=== PATIENT | female | born 1990 | race Hispanic/Latino ===

== ENCOUNTER 2018-04-18 15:56 | Inpatient (IN) | payer OTHER ==
[2018-04-18] MEDS ORDERED: Ibuprofen 800 MG TAB PO PRN (21:10)
[2018-04-18] MEDS ORDERED: Zolpidem Tartrate 5 MG TAB PO PRN (21:10)
[2018-04-18] MEDS ORDERED: Acetaminophen 500 MG TAB PO PRN (21:10)
[2018-04-18] MEDS ORDERED: Promethazine HCl 25 MG/ML VIAL IM PRN (21:10)
[2018-04-18] MEDS ORDERED: Carboprost 250 MCG/ML AMP IM PRN (21:10)
[2018-04-18] MEDS ORDERED: Methylergonovine 0.2 MG/ML VIAL IM PRN (21:10)
[2018-04-18] MEDS ORDERED: Ondansetron HCl/PF 4 MG/2 ML Vial IVP PRN (21:10)
[2018-04-18] MEDS ORDERED: Lidocaine 1% (PF) 30 ML VIAL SC PRN (21:10)
[2018-04-18] MEDS ORDERED: Misoprostol 200 MCG TAB PR PRN (21:10)
[2018-04-18] MEDS ORDERED: HYDROcodone/Acetaminophen 5/325 mg Tablet PO PRN (21:10)
[2018-04-18] MEDS ORDERED: Diphenoxylate HCl/Atropine Tablet PO PRN (21:10)
[2018-04-18] MEDS ORDERED: Butorphanol Tartrate 1 MG/ML VIAL SLOW IVP PRN (21:10)
[2018-04-18] MEDS ORDERED: NS / Oxytocin 40 units/1000ml 1,000 ML IV PRN (21:10)
[2018-04-18 21:41] VITALS: BMI 30.9
[2018-04-18] MEDS: Lactated Ringer's 1,000 ML IV SCH (21:50)
[2018-04-18 22:09] LABS: Hemoglobin 11.7 g/dL (12.0-16.0); Mean Corpuscular HGB CONC 33.4 g/dL (32.0-36.0); Mean Corpuscular Hemoglobin 31.6 pg (27.0-31.0); Mean Corpuscular Volume 94.5 fl (81.0-99.0); Mean Platelet Volume 11.2 fL (7.4-10.4); Platelet Count 165 thou/uL (130-400); RBC Distribution Width 12.6 % (11.5-14.5); White Blood Cell (WBC) Count 7.7 thou/uL (4.8-10.8)
[2018-04-18] MEDS: Misoprostol 100 MCG TAB VAG SCH (22:16)
[2018-04-18 22:32] LABS: ALT (SGPT) 167 U/L (8-55); AST (SGOT) 140 U/L (5-34); Albumin 3.3 g/dL (3.5-5.0); Alkaline Phosphatase 292 U/L (40-150); Anion Gap 12 mmol/L (10-20); BUN (Urea Nitrogen) 5 mg/dL (7.0-18.7); Bilirubin, Total 0.6 mg/dL (0.2-1.2); Calc. Creatinine Clearance 169 mL/min (70-130); Calcium 9.1 mg/dL (7.8-10.44); Carbon Dioxide 21 mmol/L (22-29); Chloride 108 mmol/L (98-107); Estimated GFR-MDRD Greater than 90; Glucose 83 mg/dL (70-105); Potassium 3.8 mmol/L (3.5-5.1); Protein, Total 6.3 g/dL (6.0-8.3); Sodium 137 mmol/L (136-145)
[2018-04-18 22:50] LABS: Syphilis Antibody Nonreactive (Nonreactive); Syphilis Antibody Index 0.06 S/CO (<1.00 Non-Reactive)
[2018-04-19 00:54] LABS: HBSAg Index 0.23 S/CO (0-0.99); Hep B Surf Ag Non-Reactive S/CO (NonReactive)
[2018-04-19] MEDS: Lactated Ringer's 1,000 ML IV SCH ×3 (03:05→12:35)
[2018-04-19] MEDS: Misoprostol 100 MCG TAB VAG SCH ×3 (03:30→12:35)
[2018-04-19] MEDS: NS w/ Oxytocin 10 units 500 ML IV SCH (06:06)
--- NOTE | 2018-04-19 07:59 | PDOC.LDHP ---
Labor and Delivery H&P Chief complaint: scheduled induction HPI: 28yo at 37w0d by LMP for IOL due to cholestasis of . Painful ctx 5/10 s/p cytotec x 1 overnight Current gestational age (weeks): 37 Due date: 05/07/18 Dating criteria: last menstrual period Grav: 3 Para: 1 OB History Details: prior loss at 14w, prior cholestasis in first Current complications: other (cholestasis, elevated LFT) Abnormal US findings: No (EFW 83%ile) Past Medical History: denies Current medications: pre-yasmin vitamins, other (ursodiol tid) Previous surgical history: none Allergies/Adverse Reactions: Allergies Allergy/AdvReac Type Severity Reaction Status Date / Time No Known Allergies Allergy Verified 04/18/18 21:29 Social history: none - Physical Exam Vital signs reviewed and normal: yes General: NAD Heart: RRR Lungs: CTAB Abdomen: gravid Extremeties: no edema FHT: category 1 [place] contractions every: q1-2min - Vaginal Exam cm dilated: 3 Effacement: 50% Station: -2 (arom clear) - OB Labs Blood type: A RH: positive Antibody Screen: negative HIV: negative RPR: negative HEPSAg: negative 1 hour GCT: negative GBS: negative Urine drug screen: negative Rubella: immune - Assessment L&D Assessment: medically indicated induction - Plan Plan: admit to L&D, labor augmentation if indicated, informed consent obtained, anesthesia consult for pain management
[2018-04-19] MEDS ORDERED: DISCONTINUE ALL PREVIOUS NARCOTICS FS SCH (09:15)
[2018-04-19] MEDS ORDERED: Bupivacaine 0.5% 20 ML, fentaNYL Citrate/PF 400 MCG in Sodium Chloride 0.9% 72 ML EPIDURAL SCH ×2 (09:15→10:15)
[2018-04-19] MEDS ORDERED: Lactated Ringer's 500 ML IV PRN (09:49)
[2018-04-19] MEDS ORDERED: Acetaminophen 325 MG TAB PO PRN (09:49)
[2018-04-19] MEDS ORDERED: ePHEDrine/0.9% NaCl/PF SYRINGE 50 mg/10 ml SLOW IVP PRN (09:49)
[2018-04-19] MEDS ORDERED: Naloxone HCl 0.4 mg/ml Vial IVP PRN (09:49)
[2018-04-19] MEDS ORDERED: Eucerin (Mineral Oil/Petrolatum,White) 30 gm Jar TOP PRN (09:49)
[2018-04-19] MEDS ORDERED: Fentanyl 4mcg/Marcaine 0.1% Cassette 100 ML EPIDURAL SCH (10:00)
[2018-04-19] MEDS ORDERED: Communication Order-Pharmacy FS SCH (10:00)
--- NOTE | 2018-04-19 11:25 | PDOC.LDPN ---
Labor & Delivery Progress Note - Subjective Subjective: comfortable - Objective Vital signs reviewed and normal: yes General: NAD Uterine fundus: non tender Dilation: 4 Effacement: 75% Station: -2 FHT: category 1 [place] contractions every: 2min IUPC placed: yes (initial IUP placed by RN returned blood, IUP removed, FHT reassuring, IUP replaced anteriorly, no active bleeding vaginally or blood in IUP, flushed easily.) FSE placed: yes - Assessment (1) Cholestasis during in third trimester Code(s): O26.613 - LIVER AND BILIARY TRACT DISORD IN , THIRD TRIMESTER ; K83.1 - OBSTRUCTION OF BILE DUCT Current Visit: Yes Status: Acute (2) 37 weeks gestation of Code(s): Z3A.37 - 37 WEEKS GESTATION OF Current Visit: Yes Status : Acute Plan: continue plan of care (cont pitocin induction)
--- NOTE | 2018-04-19 14:51 | PDOC.LDPN ---
Labor & Delivery Progress Note - Subjective Subjective: comfortable - Objective Vital signs reviewed and normal: yes General: NAD Uterine fundus: non tender Dilation: 6 Effacement: 75% Station: -2 FHT: category 2, early decelerations, late decelerations (recurrent with > 50% contractions) [employer] contractions every: 3min IUPC placed: yes (IUPC replaced as it was not reading) - Assessment (1) Cholestasis during in third trimester Code(s): O26.613 - LIVER AND BILIARY TRACT DISORD IN , THIRD TRIMESTER ; K83.1 - OBSTRUCTION OF BILE DUCT Current Visit: Yes Status: Acute (2) 37 weeks gestation of Code(s): Z3A.37 - 37 WEEKS GESTATION OF Current Visit: Yes Status : Acute Plan: resuscitative measures -: Pitocin off, positioning, O2, IVF bolus. baseline change now 110. Good variability. Allow to rest and restart pitocin once category 1.
--- NOTE | 2018-04-19 21:01 | PDOC.OPDEL ---
OB Operative/Delivery Note Delivery Dr/Surgeon: Lauren Assist: n/a Pre-Delivery Diagnosis: medically indicated induction Procedure/Post Delivery Dx: spontaneous vaginal delivery Weeks gestation: 37 Anesthesia: epidural - Findings A Sex: female - 1 min: 8 - 5 min: 9 - Additional Findings/Plan Placenta delivered: spontaneous Repaired Obstetrical Laceration: 1st degree (repaired with 2-0 vicryl, hemostasis noted) Estimated blood loss: 200 Post delivery plan: routine recovery
[2018-04-19] MEDS ORDERED: NS / Oxytocin 40 units/1000ml 1,000 ML IV SCH (23:44)
[2018-04-19] MEDS ORDERED: Milk Of Magnesia 30 ML UDCUP PO PRN (23:44)
[2018-04-19] MEDS ORDERED: Benzocaine/Menthol 20-0.5% 60 ML CAN TOP PRN (23:44)
[2018-04-19] MEDS ORDERED: Bisacodyl 10 MG SUPP PR PRN (23:44)
[2018-04-19] MEDS ORDERED: diphenhydrAMINE 25 MG CAP PO PRN (23:44)
[2018-04-19] MEDS ORDERED: HYDROcodone/Acetaminophen 5/325 mg Tablet PO PRN ×2 (23:44)
[2018-04-19] MEDS ORDERED: Lanolin Ointment 7 GM TUBE TOP PRN (23:44)
[2018-04-19] MEDS ORDERED: Preparation H Ointment 28 GM TUBE PR PRN (23:44)
[2018-04-19] MEDS ORDERED: Ondansetron HCl/PF 4 MG/2 ML Vial IVP PRN (23:44)
[2018-04-19] MEDS ORDERED: Promethazine HCl 25 MG/ML VIAL IM PRN (23:44)
[2018-04-20] MEDS: Ibuprofen 800 MG TAB PO SCH ×3 (05:26→21:33)
[2018-04-20] MEDS ORDERED: Bupivacaine 0.25% HCL 30 ML VIAL ONE (08:29)
[2018-04-20] MEDS ORDERED: Adacel (T-DAP) 0.5 ML VIAL IM ONE (09:00)
[2018-04-20] MEDS: Prenatal Vitamin 1 TAB PO SCH (09:44)
[2018-04-20] MEDS: Ferrous Sulfate 325 MG TAB PO SCH ×2 (09:45→15:47)
[2018-04-20] MEDS: Docusate Calcium (SURFAK) 240 MG CAP PO SCH ×2 (09:45→21:33)
[2018-04-20] MEDS: Misoprostol 100 MCG TAB VAG SCH ×2 (10:49→10:50)
[2018-04-20] MEDS: NS w/ Oxytocin 10 units 500 ML IV SCH (10:50)
--- NOTE | 2018-04-20 13:36 | PDOC.PP ---
Post Progress Note Post Day #: 1 PO intake tolerated: yes Flatus: yes Ambulation: yes Vital Signs (12 hours) Temp Pulse Resp BP 04/20/18 12:00 97.9 F 66 18 04/20/18 11:54 97.9 F 66 18 103/56 L 04/20/18 08:40 98.4 F 71 20 04/20/18 07:53 98.4 F 71 20 103/54 L 04/20/18 05:25 98.8 F 74 18 105/63 Weight Weight 186 lb - Physical Examination General: NAD Respiratory: non-labored breathing Abdominal: no distention, appropriately TTP Fundus firm & at: umb Extremities: negative homans (B) Neurological: no gross focal deficits Psychiatric: normal affect Result Diagrams: 04/18/18 21:54 04/18/18 21:54 Additional Labs: Post Labs Blood Type O POSITIVE 04/18/18 21:54 Hep Bs Antigen Non-Reactive S/CO (NonReactive) 04/18/18 21:54 (1) Cholestasis during in third trimester Code(s): O26.613 - LIVER AND BILIARY TRACT DISORD IN , THIRD TRIMESTER ; K83.1 - OBSTRUCTION OF BILE DUCT Status: Acute (2) 37 weeks gestation of Code(s): Z3A.37 - 37 WEEKS GESTATION OF Status: Acute - Assessment/Plan PPD1 from [facility] Doing well, Rh pos RImm Cont PP care, home tomorrow
[2018-04-21] MEDS: Ibuprofen 800 MG TAB PO SCH ×2 (05:40→14:13)
[2018-04-21 08:35] VITALS: BP 115/58; TEMP 98.7
[2018-04-21] MEDS: Prenatal Vitamin 1 TAB PO SCH (09:23)
[2018-04-21] MEDS: Ferrous Sulfate 325 MG TAB PO SCH (09:23)
[2018-04-21] MEDS: Docusate Calcium (SURFAK) 240 MG CAP PO SCH (09:23)
== END 2018-04-21 15:15 | disposition home or self-care (01) | DRG 775 ==
LOC: L&D 21:06 → 3SW 04-19 23:11
PROVIDERS: ADMIT Student in an Organized Health Care Education/Training Program; ATTEND Student in an Organized Health Care Education/Training Program
PROC: 10E0XZZ Delivery of Products of Conception, External Approach (ICD-10-PCS; principal; 2018-04-19)
PROC: 0HQ9XZZ Repair Perineum Skin, External Approach (ICD-10-PCS; 2018-04-19)
PROC: 3E0P7VZ Introduction of Hormone into Female Reproductive, Via Natural or Artificial Opening (ICD-10-PCS; 2018-04-19)
DX: O26.62 Liver and biliary tract disorders in childbirth (principal); K83.1 Obstruction of bile duct; O70.0 First degree perineal laceration during delivery; O76 Abnormality in fetal heart rate and rhythm complicating labor and delivery; Z3A.37 37 weeks gestation of pregnancy; Z37.0 Single live birth
CPT/HCPCS: 36415; 51702; 80053; 85027; 86780; 86850; 86900; 86901; 87340; 88307; J2405; J3010; J3490; J7050; S0020

== ENCOUNTER 2019-07-01 17:46 | Inpatient (IN) | payer OTHER ==
[2019-07-01 18:48] VITALS: BMI 31.7
[2019-07-01] MEDS ORDERED: Butorphanol Tartrate 1 MG/ML VIAL SLOW IVP PRN (18:57)
[2019-07-01] MEDS ORDERED: HYDROcodone/Acetaminophen 5/325 mg Tablet PO PRN (18:57)
[2019-07-01] MEDS ORDERED: hydrALAZINE 20 MG/ML VIAL SLOW IVP PRN (18:57)
[2019-07-01] MEDS ORDERED: Zolpidem Tartrate 5 MG TAB PO PRN (18:57)
[2019-07-01] MEDS ORDERED: Promethazine HCl 25 MG/ML VIAL IM PRN (18:57)
[2019-07-01] MEDS ORDERED: Ondansetron PF 4 MG/2 ML Vial IVP PRN (18:57)
[2019-07-01] MEDS: Lactated Ringer's 1,000 ML IV SCH (19:00)
[2019-07-01 19:29] LABS: Hemoglobin 12.2 g/dL (12.0-16.0); Mean Corpuscular HGB CONC 33.6 g/dL (32.0-36.0); Mean Corpuscular Hemoglobin 30.6 pg (27.0-31.0); Mean Corpuscular Volume 91.1 fL (78.0-98.0); Mean Platelet Volume 9.6 fL (7.4-10.4); Platelet Count 269 thou/uL (130-400); RBC Distribution Width 12.9 % (11.5-14.5); Red Blood Cell (RBC) Count 3.98 mill/uL (4.20-5.40); White Blood Cell (WBC) Count 11.7 thou/uL (4.8-10.8)
[2019-07-01] MEDS: Misoprostol 200 MCG TAB VAG SCH (19:55)
[2019-07-01 20:08] LABS: Syphilis Antibody Nonreactive (Nonreactive); Syphilis Antibody Index 0.07 S/CO (<1.00 Non-Reactive)
[2019-07-01] MEDS ORDERED: Misoprostol 200 MCG TAB VAG SCH (21:00)
[2019-07-01 22:36] LABS: HBSAg Index 0.12 S/CO (0-0.99); Hep B Surf Ag Non-Reactive S/CO (NonReactive)
[2019-07-02] MEDS: Misoprostol 200 MCG TAB VAG SCH ×2 (01:24→04:50)
[2019-07-02] MEDS: Lactated Ringer's 1,000 ML IV SCH (04:49)
[2019-07-02] MEDS ORDERED: Misoprostol 200 MCG TAB ONE (08:29)
[2019-07-02] MEDS ORDERED: Acetaminophen 325 MG TAB PO PRN (14:26)
[2019-07-02] MEDS ORDERED: NS / Oxytocin 40 units/1000ml 1,000 ML ONE (16:17)
== END 2019-07-02 21:30 | disposition home or self-care (01) | DRG 807 ==
LOC: L&D 17:46
PROVIDERS: ADMIT Obstetrics & Gynecology; ATTEND Obstetrics & Gynecology
PROC: 10E0XZZ Delivery of Products of Conception, External Approach (ICD-10-PCS; principal; 2019-07-01)
PROC: 10907ZC Drainage of Amniotic Fluid, Therapeutic from Products of Conception, Via Natural or Artificial Opening (ICD-10-PCS; 2019-07-01)
PROC: 3E033VJ Introduction of Other Hormone into Peripheral Vein, Percutaneous Approach (ICD-10-PCS; 2019-07-01)
PROC: 3E0P7VZ Introduction of Hormone into Female Reproductive, Via Natural or Artificial Opening (ICD-10-PCS; 2019-07-01)
DX: O36.4XX0 Maternal care for intrauterine death, not applicable or unspecified (principal); Z37.1 Single stillbirth; O99.02 Anemia complicating childbirth; D50.9 Iron deficiency anemia, unspecified; O32.1XX0 Maternal care for breech presentation, not applicable or unspecified; Z3A.20 20 weeks gestation of pregnancy
CPT/HCPCS: 36415; 85027; 86780; 86850; 86900; 86901; 87340; 88300; 88305; J0595; J2405